=== PATIENT | female | born 1960 | race Caucasian/White ===

== ENCOUNTER 2024-11-19 07:56 | Day surgery (SDC) | payer BC, MEDICARE, OTHER ==
[~2024-11-19 07:56] MED LIST: Sodium Chloride 0.9% 10 ML Syringe FLUSH PRN
[2024-11-19] MEDS ORDERED: Midazolam 1 MG/ML 2 ML SDV IV ONE (07:57)
[2024-11-19] MEDS ORDERED: Propofol 200 MG/20 ML SDV IV ONE (07:57)
[2024-11-19] MEDS: Lactated Ringers 1,000 ML IV SCH (08:39)
== END 2024-11-19 10:20 | disposition home or self-care (01) ==
LOC: FB.SDS 07:56
PROVIDERS: ATTEND Surgery
DX: K21.9 Gastro-esophageal reflux disease without esophagitis (principal); R13.10 Dysphagia, unspecified; F41.9 Anxiety disorder, unspecified; F32.A Depression, unspecified; I10 Essential (primary) hypertension; E78.5 Hyperlipidemia, unspecified; Z87.891 Personal history of nicotine dependence; Z88.1 Allergy status to other antibiotic agents; Z88.5 Allergy status to narcotic agent; Z79.899 Other long term (current) drug therapy
CPT/HCPCS: 00731; A9270-GY; J2250; J2704; J7120